=== PATIENT | male | born 2005 | race Caucasian/White ===

== ENCOUNTER 2025-02-19 20:31 | Emergency (ER) | payer SELFPAY ==
[2025-02-19 20:35] VITALS: BP 131/76; PULSE 78; RESP 16; TEMP 36.6; O2SAT 94; BMI 23.1
--- NOTE | 2025-02-19 20:52 | XRR_ITS ---
PROCEDURE INFORMATION: Exam: XR Left Shoulder Exam date and time: 02/19/2025 8:56 PM Age: 19 years old Clinical indication: Injury or trauma; Fall; Blunt trauma (contusions or hematomas); Shoulder; Patient fell akwardly onto left arm while playing basketball. C/O left humeral pain with obvious deformity to mid humerus. ; Additional info: Basketball injury, lue pain TECHNIQUE: Imaging protocol: Radiologic exam of the left shoulder. Views: 2 or more views. COMPARISON: CR ( EX, ) 02/19/2025 8:56 PM FINDINGS: Bones/joints: Overriding fracture of the left mid humeral shaft, with apex posterolateral angulation. Soft tissues: Normal. XR/XR shoulder LT min 2V* [id number] IMPRESSION: Overriding fracture of the left mid humeral shaft, with apex posterolateral angulation.
--- NOTE | 2025-02-19 20:52 | XRR_ITS ---
PROCEDURE INFORMATION: Exam: XR Left Elbow Exam date and time: 02/19/2025 8:56 PM Age: 19 years old Clinical indication: Injury or trauma; Fall; Blunt trauma (contusions or hematomas); Elbow; Patient fell akwardly onto left arm while playing basketball. C/O left humeral pain with obvious deformity to mid humerus. ; Additional info: Baksetball injury, lue pain TECHNIQUE: Imaging protocol: Radiologic exam of the left elbow. Views: 1 or 2 views. COMPARISON: CR (CHEST, ) 02/19/2025 8:56 PM FINDINGS: Bones/joints: Fracture of the mid humeral shaft with apex posterolateral angulation. Soft tissues: Normal. XR/XR elbow LT 2V [id number] IMPRESSION: Fracture of the mid humeral shaft with apex posterolateral angulation.
--- NOTE | 2025-02-19 20:52 | XRR_ITS ---
PROCEDURE INFORMATION: Exam: XR Left Humerus Exam date and time: 02/19/2025 8:56 PM Age: 19 years old Clinical indication: Injury or trauma; Fall; Blunt trauma (contusions or hematomas); Arm, upper; Patient fell akwardly onto left arm while playing basketball. C/O left humeral pain with obvious deformity to mid humerus. ; Additional info: Basketball injury, mid humeral pain and mild deformity TECHNIQUE: Imaging protocol: Radiologic exam of the left humerus. Views: 2 or more views. COMPARISON: CR (CHEST, ) 02/19/2025 8:56 PM FINDINGS: Bones/joints: Overriding fracture of the mid humeral shaft, with apex posterolateral angulation. Soft tissues: Normal. XR/[place] [id number] IMPRESSION: Overriding fracture of the mid humeral shaft, with apex posterolateral angulation.
[2025-02-19 20:57] VITALS: RESP 18
[2025-02-19] MEDS: morphine 4 mg/mL SDV 1 mL IVP (20:57)
[2025-02-19] MEDS: ondansetron 2 mg/ML SDV 2 mL 4 MG IVP (20:58)
[2025-02-19 21:27] VITALS: BP 140/78; PULSE 76; O2SAT 97
[2025-02-19] MEDS: HYDROmorphone 0.5 MG/0.5 ML INJ IVP (21:44)
--- NOTE | 2025-02-19 21:45 | W.ED.EXTPRO ---
HPI - Extremity Problem General: Chief complaint: Extremity Injury, Lower Stated complaint: possible Left Humerous fx History of Present Illness: Patient is a 19-year-old male with no past medical history who presents to the ED with a left arm injury. Patient had just done today during a basketball game and had come down awkwardly on his left upper arm and had immediate pain and came here. Reports severe swelling of his left upper arm but no numbness or tingling, denies hitting his head, no LOC, no other traumatic injury reported. No prior orthopedic injuries of his left upper extremity. Related Data Previous Rx's ?Medication ?Instructions ?Recorded cyclobenzaprine 10 mg tablet 10 mg PO TID PRN muscle spasm #14 02/19/25 tabs oxycodone 5 mg tablet 5 mg PO Q8H PRN pain #14 tabs 02/19/25 Allergies Allergy/AdvReac Type Severity Reaction Status Date / Time azithromycin (From Zithromax) Allergy Unknown Verified 02/19/25 20:38 ibuprofen (From DayQuil Allergy Unknown Verified 02/19/25 20:38 Sinus Pressure/Pain) pseudoephedrine (From Allergy Unknown Verified 02/19/25 20:38 DayQuil Sinus Pressure/Pain) Review of Systems General: Reports: 10 or more systems reviewed and unremarkable except in HPI and below Musc: Reports: joint pain and joint swelling Physical Exam Narrative: EXAM NARRATIVE: Well-appearing, no acute distress, vital signs stable on arrival. Left upper extremity with moderate amount of swelling to the left mid humeral region, no obvious lacerations, abrasions. No tenderness to left shoulder or left elbow, wrist. Mild tender to the touch, 2+ radial pulse, radial, median, ulnar nerves intact. No CTL tenderness, no other injuries noted. Course Vital Signs: Vital signs: Vital Signs Temperature 97.9 F 02/19/25 20:35 Pulse Rate 63 02/19/25 23:02 Respiratory Rate 16 02/19/25 22:48 Blood Pressure 130/79 02/19/25 23:02 Pulse Oximetry 98 02/19/25 23:02 Oxygen Delivery Me thod Room Air 02/19/25 21:27 MDM - Extremity (Nontraumatic) Medical Decision Making -ddx: Humeral fracture, shoulder dislocation, considered but less likely neurovascular injury, compartment syndrome - Patient with seemingly isolated trauma, affected x-rays of area showed largely displaced midshaft left humeral fracture, closed with no injuries to shoulder or elbow joint. Patient improved with morphine, discussed case with orthopedics on-call, will place in a coaptation splint and have him follow-up with their clinic in a few days for reevaluation and potential surgical planning. Patient placed in splint with repeat neurovascular exam, MSK exam reassuring, no numbness or tingling and discharged in stable condition with oxycodone and Flexeril for breakthrough symptomatic pain. Strict return precautions given, host family at bedside and agreeable with plan of care. Lab Data Radiology Impressions Elbow X-Ray 02/19/25 20:52 IMPRESSION: Fracture of the mid humeral shaft with apex posterolateral angulation. Humerus X-Ray 02/19/25 20:52 IMPRESSION: Overriding fracture of the mid humeral shaft, with apex posterolateral angulation. Shoulder X-Ray 02/19/25 20:52 IMPRESSION: Overriding fracture of the left mid humeral shaft, with apex posterolateral angulation. All radiology interpretation(s) finalized by discharge Discharge Plan Discharge Patient Disposition: Home Clinical Impression: Closed left humeral fracture Condition: Stable Prescriptions: New oxycodone 5 mg tablet 5 mg PO Q8H PRN (Reason: pain) Qty: 14 0RF cyclobenzaprine 10 mg tablet 10 mg PO TID PRN (Reason: muscle spasm) Qty: 14 0RF Discharge Orders: Discharge ED (Routine); Ordered 02/19/25 Ordered By: Neymar Zhu Referrals: [facility] [Outside] - 1-3 days Discharge Diet: Usual diet Discharge Activity: Limit activity as instructed Patient Instructions: Opioid Safety, Pain Management, Patient Portal & Caleb Instructions Activity Restrictions/Additional Instructions: You were seen after your left arm injury, you were evaluated with x-rays which found you to have a displaced fracture of your left upper arm. This most likely will need surgery, to stabilize it in the meantime, you are placed in a coaptation splint, you need to be completely nonweightbearing with your left arm over the next week, keep doing stretches of but notes it does not get stiff. Apply ice packs 20 minutes at a time every few hours to help with the swelling. For the pain, alternate ibuprofen 400 mg and Tylenol 650 mg every 4 hours as needed. For breakthrough pain on top of this, use oxycodone 5 mg every 8 hours as needed, do not drive or operate heavy machinery with this medication as it can be sedating. For any spasms or cramps, use the Flexeril 10 mg every 8 hours as needed as well. A referral has been placed for you at the orthopedics clinic at [facility], if you do not get a call within the next 2 days, call the clinic at the phone number listed above for an initial appointment. Return to the ED with severe worsening of the pain, numbness or tingling of your left arm, severe worsening of the swelling or redness, any other emergent concerns. Print Language: Georgian Coding Level of Care Code ED Wardrobe Supervisor for Rohit Michael
[2025-02-19 22:48] VITALS: RESP 16
[2025-02-19] MEDS: oxyCODONE 5 mg IR Tab/Cap 10 MG PO (22:48)
--- NOTE | 2025-02-19 22:48 | PC.NURSE ---
Sent Oxy for home until Pharmacy opens.
[2025-02-19 23:02] VITALS: BP 130/79; PULSE 63; O2SAT 98
== END 2025-02-19 23:04 | disposition home or self-care (01) ==
PROVIDERS: Emergency Provider Student in an Organized Health Care Education/Training Program
DX: S42.302A Unspecified fracture of shaft of humerus, left arm, initial encounter for closed fracture (principal); X58.XXXA Exposure to other specified factors, initial encounter; Y93.67 Activity, basketball
CPT/HCPCS: 73030; 73060; 73070; 96374; 96375; 99284; 99291; J1171; J1885; J2270; J2405; J9999